=== PATIENT | female | born 1950 | race Caucasian/White ===

== ENCOUNTER 2021-02-17 06:57 | Emergency (ER) | payer MEDICARE, OTHER ==
[2021-02-17 07:32] LABS: HEMOGLOBIN 12.2 gm/dl (12.3-15.3); RED BLOOD COUNT 4.33 M/UL (4.00-5.10)
[2021-02-17 07:55] LABS: BUN/CREATININE RATIO 17 (0-10)
[2021-02-17] MEDS ORDERED: VIBRAMYCIN 100100 MG PO (09:11)
[2021-02-17] MEDS ORDERED: ZOFRAN4 MG PO (09:11)
== END 2021-02-17 10:35 | disposition home or self-care (01) ==
LOC: ER1 06:57
PROVIDERS: Physician Assistant
DX: Z23 Encounter for immunization (principal); U07.1 COVID-19; J12.82 Pneumonia due to coronavirus disease 2019; J45.909 Unspecified asthma, uncomplicated; N18.30 Chronic kidney disease, stage 3 unspecified; Z88.0 Allergy status to penicillin; Z88.1 Allergy status to other antibiotic agents; Z88.5 Allergy status to narcotic agent
CPT/HCPCS: 71045; 80053; 82550; 82553; 83874; 84484; 85025; 93005; 96374; 99284; J2405; J7030; M0243

== ENCOUNTER 2021-02-21 10:20 | Emergency (ER) | payer MEDICARE, OTHER ==
[~2021-02-21 10:20] MED LIST: VIBRAMYCIN 100100 MG PO; ZOFRAN4 MG PO
[2021-02-21 12:08] LABS: HEMOGLOBIN 11.4 gm/dl (12.3-15.3); WHITE BLOOD COUNT 6.4 K/UL (4.5-11.0)
[2021-02-21] MEDS ORDERED: ZOFRAN4 MG PO (12:41)
[2021-02-21] MEDS ORDERED: PHENERGAN 12.12.5 MG PR (13:15)
== END 2021-02-21 13:19 | disposition home or self-care (01) ==
LOC: ER1 10:20
PROVIDERS: Physician Assistant
DX: U07.1 COVID-19 (principal); J45.909 Unspecified asthma, uncomplicated; N18.9 Chronic kidney disease, unspecified; E03.9 Hypothyroidism, unspecified; Z79.899 Other long term (current) drug therapy; Z88.0 Allergy status to penicillin; Z91.012 Allergy to eggs; Z88.5 Allergy status to narcotic agent
CPT/HCPCS: 80053; 85025; 99284